=== PATIENT | male | born 1970 | race Caucasian/White ===

== ENCOUNTER 2023-07-19 10:34 | Observation (INO) ==
[~2023-07-19 10:34] MED LIST: Iodixanol 320 (CONTRAST) 100 ML SDV IV ONE
[2023-07-19 11:31] LABS: ABS Basophils 0.1 10^3/uL (0.0-0.1); ABS Eosinophils 0.5 10^3/uL (0.0-0.5); ABS Lymphocytes 1.7 10^3/uL (1.0-4.8); ABS Monocytes 0.5 10^3/uL (0.0-1.1); ABS Neutrophils 2.4 10^3/uL (1.5-7.6); Eosinophil % 9.9 %; Hematocrit 44.4 % (38-53); Hemoglobin 14.7 g/dL (13.2-16.3); Lymphocyte % 32.7 %; Mean Corpuscular Hemoglobin 28.6 pg (27-33); Mean Corpuscular Hgb Conc 33.1 g/dL (31-36); Mean Corpuscular Volume 86.4 fL (80-97); Mean Platelet Volume 10.3 fL (7.5-11.2); Platelet Count 209 10^3/uL (150-450); Red Blood Count 5.13 10^6/uL (4.06-5.63); Red Cell Distribution Width 14.2 % (12-17); White Blood Count 5.1 10^3/uL (3.6-10.2)
[2023-07-19 11:46] LABS: Urine Appearance Clear; Urine Bilirubin Negative (Negative); Urine Blood Negative (Negative); Urine Color Yellow; Urine Glucose Negative (Negative); Urine Ketones Negative (Negative); Urine Nitrite Negative (Negative); Urine Protein Negative (Negative); Urine Specific Gravity 1.041 (1.002-1.030); Urine Urobilinogen Negative (Negative)
[2023-07-19 11:47] LABS: Activated Partial Thrombo Time 32.3 seconds (26.0-38.0); INR 1.01 (0.83-1.13)
[2023-07-19 11:54] LABS: Albumin 3.7 g/dL (3.2-5.2); Albumin/Globulin Ratio 1.5 (1-3); Calcium 8.6 mg/dL (8.6-10.3); Creatinine, Serum 1.19 mg/dL (0.67-1.17); Direct Bilirubin 0.1 mg/dL (0.03-0.18); Globulin 2.4 g/dL (2-4); HDL Cholesterol 30.9 mg/dL; Indirect Bilirubin 0.3 mg/dL (0.3-1.0); Total Bilirubin 0.4 mg/dL (0.2-1.0); Total Protein 6.1 g/dL (6.4-8.9); eGFR CKD-EPI 73.5 (>60)
[2023-07-19] MEDS ORDERED: Aspirin EC 81 mg TAB.EC (enteric coated) PO ONE (12:05)
[2023-07-19] MEDS ORDERED: NS 0.9% 1000 ml BAG 1,000 ML IV SCH (16:00)
[2023-07-19 16:23] LABS: C Reactive Protein 4.95 mg/L (<8.01)
[2023-07-20 07:26] LABS: Calcium 8.5 mg/dL (8.6-10.3); Creatinine, Serum 1.19 mg/dL (0.67-1.17); Potassium 4.3 mmol/L (3.5-5.0); eGFR CKD-EPI 73.5 (>60)
[2023-07-20 15:15] VITALS: BP 134/84
== END 2023-07-20 16:05 | disposition home or self-care (01) ==
LOC: ED 10:34 → EDHOLD 10:34 → SUATTDRO 12:28 → MEDTELE 15:19
PROVIDERS: ADMIT Internal Medicine; ATTEND Hospitalist